=== PATIENT | male | born 1940 | race Caucasian/White ===

== ENCOUNTER 2017-06-21 10:17 | Outpatient (RCR) | payer MEDICARE ==
[~2017-06-21 10:17] MED LIST: ALLO-2 PO; ASPI-879 PO; CYCL10TA29 PO; LISI2.5T60 PO; OXYC-865 PO; ROS10 PO; SIMV-49 PO
== END 2017-06-28 13:43 | disposition home or self-care (01) ==
LOC: RAON 10:17
PROVIDERS: ATTEND Radiology Radiation Oncology
DX: Z85.22 Personal history of malignant neoplasm of nasal cavities, middle ear, and accessory sinuses (principal); Z92.3 Personal history of irradiation; I25.10 Atherosclerotic heart disease of native coronary artery without angina pectoris; E78.00 Pure hypercholesterolemia, unspecified; I10 Essential (primary) hypertension; M10.9 Gout, unspecified; Z79.82 Long term (current) use of aspirin; Z79.899 Other long term (current) drug therapy
CPT/HCPCS: 99212

== ENCOUNTER → 2019-01-16 | Outpatient (CLI) | payer MEDICARE ==
[~2019-01-16] MED LIST changes: +ASPI-757 PO; -ROS10 PO; +ROSU10TA PO; +TAMS0.4C25 PO
== END ==
LOC: LAB 10:51
PROVIDERS: ATTEND Family Medicine
DX: Z02.9 Encounter for administrative examinations, unspecified (principal)